=== PATIENT | female | born 1970 | race Caucasian/White ===

== ENCOUNTER 2020-11-25 12:38 | Outpatient (REF) | payer BC, SELFPAY ==
--- NOTE | 2020-11-25 11:30 | PAPFT_PTH ---
PATIENT: Gillian Diaz LOC: [facility] U#:[id number] AGE/SX: 50/F ROOM: RE11/25/[address]: PATRICK Lynch : 1970 BED: DIS: 11/25/2020 SPEC #: [id number] RECD: 11/25/20 12:46 STATUS: SHERI RESofi #: [id number] DELFINO: 11/25/20 11:[address]: Soraida Figueroa DEPT: [facility] Cytology RECD BY: Katerina Siddiqi ENTERED: 11/25/20 12:47 SP TYPE: PAPFT OTHR DR: Camila Gamez APRN Tissues: 1 - CX/ENDOCX FOR PAP SMEARS Procedures: PAP THIN PREP/UVM Screening HPV DNA PROBE Comments: [id number]
== END 2020-11-25 12:39 | disposition home or self-care (01) ==
LOC: LBN 12:38
PROVIDERS: PCP Nurse Practitioner Adult Health; Visit Provider Nurse Practitioner Family
DX: Z12.4 Encounter for screening for malignant neoplasm of cervix (principal); Z11.51 Encounter for screening for human papillomavirus (HPV)
CPT/HCPCS: 88142; 87624

== ENCOUNTER 2020-12-07 01:59 | Outpatient (CLI) | payer BC, SELFPAY ==
--- NOTE | 2020-12-07 06:30 | DI.MAMMO_ITS ---
Exam(s) MAMMO SCREENING EXAM: MAMMO SCREENING CLINICAL HISTORY: screening,z12.39 TECHNIQUE: Mammograms were interpreted according to the usual protocol including computer analysis w [employer] CAD system, tomosynthesis and C-view imaging. COMPARISON: 2016 FINDINGS: The breasts are composed of heterogeneously dense fibroglandular densities, Breast Density category C . No suspicious masses or suspicious microcalcifications are seen. No skin thickening or abnormal axillary lymph nodes are seen. There has been no significant change from prior exams. IMPRESSION: BI-RADS Category 1, Negative mammogram. Yearly screening mammography is recommended. Breast Density Category C, heterogeneously Dense. The mammogram demonstrates the patient's breast tissue is dense. Dense breast tissue is very common a nd is not abnormal but dense breast tissue can make it harder to find cancer on a mammogram. Also, de nse breast tissue may increase breast cancer risk. This information about the result of the mammogram report was provided to the patient to raise their awareness. Use this report when you speak with the patient about their risks for breast cancer, which includes their family history. At that time, you may recommend additional screening tests (Ultrasound or MRI) as they might be useful based on their r isk. A negative radiographic report should not delay biopsy if a dominant or clinically suspicious mass is present. Up to ten percent of cancers are not identified on mammography. A negative report may reinforce clinical impression. Adenosis and dense breasts may obscure an underlying neoplasm. False positive reports average 6 to 10%.
== END 2020-12-07 02:19 ==
PROVIDERS: PCP Nurse Practitioner Adult Health; Visit Provider Nurse Practitioner Family
DX: Z12.31 Encounter for screening mammogram for malignant neoplasm of breast (principal)
CPT/HCPCS: 77063; 77067

== ENCOUNTER 2021-06-29 01:09 | Outpatient (CLI) | payer BC, SELFPAY ==
[2021-06-29 12:14] LABS: Source Nasal/Nares
[2021-06-29 16:25] LABS: COVID-19 PCR Negative (Negative)
== END 2021-06-29 01:10 | disposition home or self-care (01) ==
LOC: LBO 01:09
PROVIDERS: PCP Nurse Practitioner Adult Health; Visit Provider Surgery
DX: Z20.822 Contact with and (suspected) exposure to COVID-19 (principal)
CPT/HCPCS: 87635

== ENCOUNTER 2021-07-01 11:10 | Day surgery (SDC) | payer BC, SELFPAY ==
--- NOTE | 2021-06-30 12:42 | COLE_ITS ---
Colonoscopy Report Date of procedure: 07/01/21 Pre-op diagnosis general: +family Hx of CRC 2nd degree/>64 Surgeon: Belem Velazquez Anesthesia Type: General:No Airway Complications: None Disposition: no change Prep: Miralax/Dulcolax Procedure Description: After informed consent was obtained the patient was taken to the procedure room and placed in a left decubitous position. Monitors were applied and a time out was done. The patients name, date of , procedure, allergies to medications and metal in their body was reviewed. The patient was then sedated. Once s edated and comfortable a rectal exam was done. External exam was normal. Internal exam revealed a normal sphincter tone and no palpable masses. The scope was then introduced and retrofelexed. No internal hemorrhoids were identified. The scope was then advanced to the cecum w/out difficulty. The TI and appendiceal orifice were identified. The prep was BBPS3 throught all segments. The scope was then slowly retracted over 7 minutes back into the rectum. There are no polyps/AVM's/diverticula. The mucosa is pink& healthy. The scope was removed and the patient was woken up and taken back to Same day surgery in stable condition. The patient tolerated the procedure well and there were no immediate complications. Follow up: The patient should follow up in 10 years unless they develop changes in bowel habits or other new gastrointestinal complaints.
--- NOTE | 2021-06-30 12:43 | PDOC.DSDIS_ITS ---
Discharge Plan Disposition Patient Disposition: HOME Condition: Good Discharge Details Reason For Visit: colonoscpy/c Attending Provider: Belem Velazquez Primary Care Provider: Camila Gamez Home Meds and New Rx's Prescriptions: Continued multivitamin Tablet 1 tab PO DAILY 0RF cholecalciferol (vitamin D3) 10 mcg (400 unit) capsule 10 mcg PO DAILY 0RF zinc 50 mg tablet 50 mg PO DAILY 0RF Discontinued bisacodyl [Dulcolax (bisacodyl)] 5 mg tablet,delayed release (DR/EC) 5 mg PO ONCE Qty: 4 0RF Rx Instructions: Take according to provider's instructions for colonoscopy prep. polyethylene glycol 3350 17 gram/dose powder 17 g PO ONCE Qty: 238 0RF Rx Instructions: To be taken as directed by prescriber's office for colonoscopy prep. No Action Collagen Plus Vitamin C 125-740 mg Capsule PO 0RF Discharge Instructions Additional Instructions: DSU Colonoscopy Post- Op Instructions Instructions for Everyone who is given Anesthesia: For your safety, please do the following for the next twenty-four (24) hours: *Do Not operate a motor vehicle (car, truck, motorcycle, etc.) *Do Not drink alcoholic beverages or use any recreational drugs for the first 24 hours or while taking pain medications. The medications in your body may have a reaction that can be dangerous. *Do Not make any important decisions or sign any important papers. Findings: normal Follow up:repeat 10 yrs 1. No lifting over 20 pounds or strenuous activity for the first 24 hours after your procedure. After 24 hours there are no restrictions on your activity but you may feel fatigued for a few days. 2. After you arrive home you may have a light meal and return to your normal diet as you can tolerate it without feeling sick to your stomach. 3. You may have a bloated, gaseous feeling in your belly (abdomen) after a colonoscopy. Passing gas and belching will help. Walking or lying down on your left side with your knees flexed may relieve the discomfort. Call the office at [phone] (Office) or [phone] (Hospital) right away if you notice any of the following: a.Vomiting of blood or ?coffee ground stools?. b.Rectal bleeding 1Tbsp, blood clots or continuous bleeding. c.Severe belly (abdominal) pain. d.A hard distended belly (abdomen) and an inability to pass gas. 4. Please don?t expect to have a normal BM (bowel movement) for 2-3 days after your procedure. 5. If there are questions regarding the findings of your procedure, please contact your doctor 6. If you are unable to contact your doctor with a problem, contact the hospital at [phone]. 7. Continue all your regular medications unless directed otherwise. I understand the above instructions and have no questions. Signature of Patient or Adult Escort Name of Responsible Adult Escort Signature of Nurse Date/Time Activity:: see above Diet:: see above Discharge Orders Discharge Orders: Discharge Order (Routine); Ordered 06/30/21 Ordered By: Belem Velazquez DS: Diagnosis Discharge Diagnosis (1) Screening for colon cancer: Status: Acute (2) Family history of malignant neoplasm of colon in relative diagnosed when older than 50 years of age: Status: Acute
[2021-07-01 11:24] VITALS: BP 124/79; PULSE 64; RESP 16; TEMP 36.2; O2SAT 98
[2021-07-01] MEDS: Lactated Ringers 1,000 ML 80 ML IV (11:54)
--- NOTE | 2021-07-01 12:04 | W.ANESPRE ---
General Info Date of Service Date Performed: 07/01/21 Height: 5 ft 3 in Weight: 60.8 kg Body Mass Index (BMI): 23.7 Surgical Procedure: Operation Date: 07/01/21 11:35 Proposed Procedure Side Surgeon p Colonoscopy Belem Velazquez DO Actual Procedure Side Surgeon p Colonoscopy Not Applicable Belem Velazquez DO Pre-Op Diagnosis Post-Op Diagnosis SCREENING Meds Allergies and Home Medications Allergies Allergy/AdvReac Type Severity Reaction Status Date / Time nitrofurantoin Allergy Anaphylaxis Verified 07/01/21 11:22 [From Macrobid] Home Medication Medication Instructions Recorded cholecalciferol (vitamin D3) 10 10 mcg PO DAILY 06/23/21 mcg (400 unit) capsule multivitamin 1 tab PO DAILY 06/23/21 zinc 50 mg tablet 50 mg PO DAILY 06/23/21 ascorbic acid 125 mg-collagen, cap PO 06/30/21 hydrolyzed 740 mg capsule (Collagen Plus Vitamin C) Current Visit Medications: Current Medications Generic Name Dose Route Start Last Admin Trade Name Freq PRN Reason Stop Dose Admin Hyoscyamine Sulfate 0.125 mg 07/01/21 06:00 Hyoscyamine 0.125 Mg Sl/Oral/Chew SL 07/01/21 16:00 DIRECTED PRN Ringer's Solution 1,000 mls @ 80 mls/hr 07/01/21 06:00 07/01/21 11:54 IV 07/30/21 23:59 80 mls/hr INFUSION CINDY Administration IV Miscellaneous Supplies 1 each 07/01/21 06:00 Iv Access IV 07/30/21 23:59 DIRECTED CINDY Ondansetron HCl 4 mg 07/01/21 06:00 Ondansetron 4 Mg/2 Ml Vial IVP 07/01/21 16:00 Q4H PRN PRN Nausea / Vomiting Sodium Chloride 0 ml 07/01/21 06:00 Normal Saline Flush 10 Ml Syr IV 07/30/21 23:59 PRN PRN Sodium Chloride 0 ml 07/01/21 06:00 Normal Saline 10 Ml Vial IJ 07/30/21 23:59 DIRECTED PRN Sterile Water 0 ml 07/01/21 06:00 Water,Injection,Sterile 10 Ml Vial IJ 07/30/21 23:59 DIRECTED PRN PFSH Active Problems Active Problems: Problem Status Onset Code Family history of malignant neoplasm of colon in relative diagnosed when older than 50 years of age Z80.0 Screening for colon cancer Z12.11 Medical History Medical History Fatty liver in mother during (~1998) Medical History Comments:: history of motion sickness Surgical History Surgical History section (~1998) History of bunionectomy (~2015) Status post cervical polyp removal 11/26/2020. 1.5 cm polyp removed without difficulty. No pathology sent Tobacco Smoking/Tobacco Use Status: Never Second hand exposure: Yes Alcohol Alcohol Intake: never Substance Use Substance use: Never Substance use type: does not use Vital Signs and Lab Results Vital Signs Most Recent Vital Signs in EMR: Most Recent Vital Signs Temp Pulse Resp BP Pulse Ox 36.2 C L 64 16 124/79 98 07/01/21 11:24 07/01/21 11:24 07/01/21 11:24 07/01/21 11:24 07/01/21 11:24 Lab Results Blood Type / Crossmatch: No Data to Display Complete Blood Count: No Data to Display Complete Metabolic Panel: No Data to Display Liver Function Panel: No Data to Display Coagulation Panel: No Data to Display Cardiac Panel: No Data to Display Arterial Blood Gas: No Data to Display Venous Blood Gas: No Data to Display Pancreas Panel: No Data to Display Thyroid Panel: No Data to Display Infectious Disease: Coronavirus (COVID-19)(PCR) Negative (Negative) 06/29/21 09:49 06/29/21 Coronavirus 2019 Source Nasal/Nares 06/29/21 09:49 06/29/21 Blood Cultures: No Data to Display Toxicology Panel: No Data to Display Panel: No Data to Display Anesthesia Assessment and Plan Anesthesia History Personal History: No History of Anesthesia Complications Family History: No Family History of Anesthesia Complications Exercise Tolerance Exercise Tolerance: Metabolic Equivalents>4 Pertinent Negatives Pertinent Negatives: No Symptoms of GERD, No Major Cardiovascular Symptoms or Complaints and No Major Pulmonary Symptoms or Complaints Cardiac & Pulmonary Exam Cardiac Exam: Normal S1/S2 Heart Sounds Pulmonary Exam: Clear Bilateral Breath Sounds Implantable Cardiac Device Does patient have a Pacemaker or an ICD?: No Airway Exam Known Difficult Airway: No Mallampati Class: 1 Mouth Opening: Normal (> 3cm) Thyromental Distance: Greater than 3 cm Neck Range of Motion: Full ROM Neck Circumference: Normal Teeth Condition: Normal Dentition ASA Classification ASA Score: ASA 2 Emergency Case?: No NPO Status NPO Status: NPO Clears >2 hours, Solids >8 hours Status Status: Not Per Patient Anesthesia Plan Resuscitation Status: Full Code Anesthesia Technique: General Anesthesia Airway Planned: Natural Airway Monitors Used: Standard Monitors
[2021-07-01 12:06] VITALS: BMI 23.7
[2021-07-01 12:40] VITALS: BP 127/86; PULSE 73; RESP 16; TEMP 36.9; O2SAT 100
[2021-07-01 13:10] VITALS: BP 141/99; PULSE 57; RESP 16; TEMP 36.2; O2SAT 100
--- NOTE | 2021-07-01 13:19 | W.ANESPOSTOP ---
Postoperative Evaluation Date, Time and Location Date Performed: 07/01/21 Time Performed: 13:12 Patient Location: Day Surgery Unit Vital Signs Most Recent Imported Vital Signs: Most Recent Vital Signs Temp Pulse Resp BP Pulse Ox 36.2 C L 57 L 16 141/99 H 100 07/01/21 13:10 07/01/21 13:10 07/01/21 13:10 07/01/21 13:10 07/01/21 13:10 Pain Score Most Recent Pain Score: Most Recent Pain Score Pain Level 0 07/01/21 13:10 Assessment Mental Status: Awake (Alert & Oriented to Patient Baseline) Airway and Respiratory Function: Patent airway with normal (patient baseline) respiratory exam Cardiovascular Function: Hemodynamically Stable Hydration Status: Adequately Hydrated Nausea & Vomiting: No Nausea or Vomiting Pain: Pt. Denies Any Pain Peripheral Nerve Block: Patient did not receive a nerve block
== END 2021-07-01 13:44 | disposition home or self-care (01) ==
LOC: SUR 11:10
PROVIDERS: PCP Nurse Practitioner Adult Health; Visit Provider Surgery
PROC: 0DJD8ZZ Inspection of Lower Intestinal Tract, Via Natural or Artificial Opening Endoscopic (ICD-10-PCS; CPT 45378; principal; 2021-07-01 11:30)
DX: Z12.11 Encounter for screening for malignant neoplasm of colon (principal); Z80.0 Family history of malignant neoplasm of digestive organs
CPT/HCPCS: 45378; J2001

== ENCOUNTER 2021-10-31 09:05 | Outpatient (REF) | payer BC, SELFPAY ==
--- NOTE | 2021-10-31 08:45 | ENDOMET_PTH ---
PATIENT: Gillian Diaz LOC: N U#:[id number] AGE/SX: 51/F ROOM: RE10/31/[address]: Rachael Jones : 1970 BED: DIS: 10/31/2021 SPEC #: [id number] RECD: 10/31/21 12:16 STATUS: SHERI RESofi #: [id number] DELFINO: 10/31/21 08:[address]: Rachael Jones DEPT: Surgical Specimen RECD BY: Margy Appiah ENTERED: 10/31/21 12:16 SP TYPE: Endomet OT DR: Camila Gamez APRN Tissues: 1 - ENDOMETRIUM BX/CURRETTE Procedures: GROSS AND MICRO LEVEL 4 Comments:
== END 2021-10-31 09:06 | disposition home or self-care (01) ==
LOC: LBN 09:05
PROVIDERS: PCP Nurse Practitioner Adult Health; Visit Provider Obstetrics & Gynecology Gynecology
DX: N95.0 Postmenopausal bleeding (principal); N85.01 Benign endometrial hyperplasia; N85.8 Other specified noninflammatory disorders of uterus
CPT/HCPCS: 88305

== ENCOUNTER 2023-07-31 04:23 | Outpatient (CLI) | payer BC, SELFPAY ==
[2023-08-01 19:05] LABS: HIV-1/2 Ag & Ab Screen Negative (Negative)
== END 2023-07-31 04:24 | disposition home or self-care (01) ==
LOC: LBO 04:23
PROVIDERS: PCP Nurse Practitioner Adult Health; Visit Provider Nurse Practitioner Adult Health
DX: Z11.4 Encounter for screening for human immunodeficiency virus [HIV] (principal)
CPT/HCPCS: 36415; 87389

== ENCOUNTER 2025-04-21 20:15 | Outpatient (REF) | payer OTHER, SELFPAY ==
[2025-04-23 10:44] LABS: Lyme Ab w Rflx to Lyme Confirm Negative (Negative)
[2025-04-25 13:27] LABS: B. miyamotoi PCR Negative (Negative); Babesia divergens/MO-1 Negative (Negative); Ehrlichia muris eauclairensis Negative (Negative)
== END 2025-04-21 20:16 | disposition home or self-care (01) ==
LOC: LBN 20:15
PROVIDERS: PCP Nurse Practitioner Adult Health; Visit Provider Nurse Practitioner Family
DX: S40.862A Insect bite (nonvenomous) of left upper arm, initial encounter (principal); W57.XXXA Bitten or stung by nonvenomous insect and other nonvenomous arthropods, initial encounter
CPT/HCPCS: 87798; 86618

== ENCOUNTER 2025-05-11 01:23 | Outpatient (CLI) | payer OTHER, SELFPAY ==
[2025-05-11 07:51] LABS: Abs Immature Grans 0.00 10^3/uL (0.0-0.06); HCT 38.5 % (36.0-46.0); HGB 12.7 g/dL (11.2-15.7); Immature Grans % 0.0 %; MCH 27.6 pg (27.0-33.0); MCHC 33.0 % (32.0-36.0); MCV 84 fL (80-95); MPV 10.0 fL (8.0-11.0); Platelet Count 228 10^3/uL (130-400); RBC 4.60 10^6/uL (3.93-5.22); RDW 12.7 % (11.7-14.6); RDW-SD 38.3 fL; WBC 4.61 10^3/uL (4.4-10.8)
[2025-05-11 08:43] LABS: Vitamin B12 914 pg/mL (211-911)
[2025-05-11 08:44] LABS: TSH (W/Ref FT4) 1.57 uIU/mL (0.55-4.78)
[2025-05-11 08:49] LABS: ALT 45 U/L (10-49); AST 39 U/L (<34); Albumin 3.9 g/dL (3.2-5.0); Alkaline Phosphatase 70 U/L (46-116); Anion Gap 9.1 mmol/L (3-11); BUN 15 mg/dL (9-23); Bilirubin, Total 0.6 mg/dL (0.2-1.2); CO2 27.9 mmol/L (20.0-31.0); Calcium 9.4 mg/dL (8.3-10.6); Chloride 106 mmol/L (98-107); Cholesterol 212 mg/dL (<200); Folate > 24.0 ng/mL (>5.38); Glucose 94 mg/dL (74-106); HDL Cholesterol 60 mg/dL (>or=50); Potassium 4.2 mmol/L (3.5-5.1); Sodium 143 mmol/L (136-145); Total Protein 6.8 g/dL (5.7-8.2)
== END 2025-05-11 01:24 | disposition home or self-care (01) ==
LOC: LBO 01:24
PROVIDERS: PCP Nurse Practitioner Adult Health; Visit Provider Nurse Practitioner Adult Health
DX: Z13.0 Encounter for screening for diseases of the blood and blood-forming organs and certain disorders involving the immune mechanism (principal); Z13.1 Encounter for screening for diabetes mellitus; Z13.220 Encounter for screening for lipoid disorders; Z13.29 Encounter for screening for other suspected endocrine disorder; R53.83 Other fatigue; Z00.00 Encounter for general adult medical examination without abnormal findings
CPT/HCPCS: 36415; 80053; 80061; 82607; 82746; 84443; 85025